=== PATIENT | female | born 1990 | race Caucasian/White ===

== ENCOUNTER 2021-10-06 18:23 | Inpatient (IN) ==
[2021-10-06] MEDS ORDERED: Buffered Lidocaine 1% SYRIN 1 ml INTRADERM ONE (18:59)
[2021-10-06] MEDS ORDERED: Lactated Ringers 1000 ml BAG 1,000 ML IV ONE (18:59)
[2021-10-06] MEDS ORDERED: Lactated Ringers 1000 ml BAG 1,000 ML IV SCH (19:00)
[2021-10-06 19:44] LABS: ABS Basophils 0.1 10^3/ul (0-0.2); ABS Eosinophils 0.1 10^3/ul (0-0.6); ABS Lymphocytes 2.6 10^3/ul (1.0-4.8); ABS Monocytes 0.9 10^3/ul (0-0.8); ABS Neutrophils 11.5 10^3/ul (1.5-7.7); Eosinophil % 0.8 %; Hematocrit 36 % (35-47); Hemoglobin 12.6 g/dL (12.0-16.0); Mean Corpuscular HGB Conc 35 g/dL (31-36); Mean Corpuscular Hemoglobin 33 pg (27-31); Mean Corpuscular Volume 95 fL (80-97); Mean Platelet Volume 12.2 fL (7.4-10.4); Platelet Count 188 10^3/uL (150-450); Red Blood Count 3.82 10^6 /uL (3.70-4.87); Red Cell Distribution Width 14 % (10-15); White Blood Count 15.2 10^3/uL (3.5-10.8)
[2021-10-06] MEDS ORDERED: OBEPIDURAL (200 ML) 0 ML EPIDURAL ONE (19:53)
[2021-10-06] MEDS ORDERED: Lidocaine 1% w EPI 1:200,000 SDV 30 ML VIAL ONE (19:53)
[2021-10-06 19:59] LABS: Urine Benzodiazepine Screen None Detected (None Detect); Urine Cannabinoids Screen Presumptive Positive (None Detect); Urine Opiates Screen None Detected (None Detect)
[2021-10-06] MEDS ORDERED: Glycerin ADULT 2.4 gm SUPP PR PRN (20:22)
[2021-10-06 20:43] LABS: HIV 4th Generation Nonreactive (Nonreactive)
[2021-10-06] MEDS: Witch Hazel PAD JAR TOPICAL PRN (22:15)
[2021-10-06] MEDS: Dibucaine 1% OINT 28.35 GM TUBE PR PRN (22:15)
[2021-10-06] MEDS ORDERED: Oxytocin 10 UNITS/ML 1 ML VIAL IM ONE (23:24)
[2021-10-07 06:24] LABS: ABS Basophils 0.1 10^3/ul (0-0.2); ABS Eosinophils 0.1 10^3/ul (0-0.6); ABS Lymphocytes 2.2 10^3/ul (1.0-4.8); ABS Monocytes 0.7 10^3/ul (0-0.8); ABS Neutrophils 9.2 10^3/ul (1.5-7.7); Eosinophil % 0.7 %; Hematocrit 29 % (35-47); Hemoglobin 9.9 g/dL (12.0-16.0); Lymphocyte % 17.7 %; Mean Corpuscular HGB Conc 35 g/dL (31-36); Mean Corpuscular Hemoglobin 33 pg (27-31); Mean Corpuscular Volume 96 fL (80-97); Mean Platelet Volume 11.8 fL (7.4-10.4); Platelet Count 160 10^3/uL (150-450); Red Blood Count 2.98 10^6 /uL (3.70-4.87); Red Cell Distribution Width 13 % (10-15); White Blood Count 12.2 10^3/uL (3.5-10.8)
[2021-10-08 10:06] VITALS: BP 112/73
[2021-10-08] MEDS: Dibucaine 1% OINT 28.35 GM TUBE PR PRN (11:02)
[2021-10-08] MEDS: Witch Hazel PAD JAR TOPICAL PRN (11:02)
== END 2021-10-08 12:42 | disposition home or self-care (01) | DRG 560 ==
LOC: MCHOBOUT 18:23 → MCHOB 18:56
PROVIDERS: ADMIT Midwife; ATTEND Midwife

== ENCOUNTER 2024-01-14 08:00 | Inpatient (IN) ==
[2024-01-14] MEDS ORDERED: Prochlorperazine 5 mg/ml 2 ml VIAL (10 mg) IV PRN (09:22)
[2024-01-14] MEDS ORDERED: Lidocaine 1% VIAL 10 MG/ML 30 ML VIAL INJ PRN (09:22)
[2024-01-14] MEDS ORDERED: Nalbuphine 10 MG/ML 1 ML VIAL IV PRN (09:22)
[2024-01-14] MEDS: miSOPROStol 100 mcg TAB ONE (09:40)
[2024-01-14 10:21] LABS: Urine Benzodiazepine Screen None Detected (None Detect); Urine Cannabinoids Screen Presumptive Positive (None Detect); Urine Opiates Screen None Detected (None Detect)
[2024-01-14 11:22] LABS: Hematocrit 37.7 % (35-45); Hemoglobin 12.7 g/dL (11.5-14.3); Mean Corpuscular Hemoglobin 31.8 pg (27-33); Mean Corpuscular Hgb Conc 33.7 g/dL (31-36); Mean Corpuscular Volume 94.3 fL (80-97); Mean Platelet Volume 11.1 fL (7.5-11.2); Platelet Count 249 10^3/uL (150-450); Red Cell Distribution Width 13.2 % (12-17); White Blood Count 9.1 10^3/uL (3.8-11.8)
[2024-01-14] MEDS: Buffered Lidocaine 1% SYRIN 1 ml INTRADERM ONE (12:01)
[2024-01-14 12:13] LABS: ABS Basophils 0.1 10^3/uL (0.0-0.1); ABS Eosinophils 0.1 10^3/uL (0.0-0.5); ABS Lymphocytes 1.9 10^3/uL (1.0-4.8); ABS Monocytes 0.4 10^3/uL (0.0-0.9); ABS Neutrophils 6.7 10^3/uL (1.5-7.6); Eosinophil % 0.7 %; Large Platelets Present; Lymphocyte % 20.4 %
[2024-01-14] MEDS: Oxytocin in LR 20,000 MILLI.UNIT/1,000 ML BAG IV SCH (14:57)
[2024-01-14] MEDS: Lactated Ringers 1000 ml BAG 1,000 ML IV SCH (14:57)
[2024-01-14] MEDS: OBEPIDURAL (200 ML) 200 ML EPIDURAL SCH (19:36)
[2024-01-14] MEDS ORDERED: Phenylephrine 40 mcg/mL 10mL (400mcg) SYRINGE IV PUSH PRN ×2 (19:47)
[2024-01-14] MEDS ORDERED: Sodium Citrate/Citric Acid LIQ 15 ML UDC PO PRN (19:47)
[2024-01-14 21:37] LABS: Urine Appearance Clear; Urine Bilirubin Negative (Negative); Urine Blood Negative (Negative); Urine Color Light-Yellow; Urine Glucose Negative (Negative); Urine Ketones Negative (Negative); Urine Nitrite Negative (Negative); Urine Protein Negative (Negative); Urine Specific Gravity 1.019 (1.002-1.030); Urine Urobilinogen Negative (Negative); Urine pH 6.5 (5.0-8.0)
[2024-01-15] MEDS ORDERED: Glycerin ADULT 2.4 gm SUPP PR PRN (03:28)
[2024-01-15] MEDS: Dibucaine 1% OINT 28.35 GM TUBE PR PRN (04:38)
[2024-01-15] MEDS: Witch Hazel PAD JAR TOPICAL PRN (04:38)
[2024-01-15] MEDS: Oxytocin in LR 20,000 MILLI.UNIT/1,000 ML BAG IV SCH (10:06)
[2024-01-15] MEDS: Lactated Ringers 1000 ml BAG 1,000 ML IV SCH (19:40)
[2024-01-15] MEDS: Lactated Ringers 1000 ml BAG 1,000 ML IV ONE ×2 (19:40)
[2024-01-16] MEDS: Polyethylene Glycol 3350 17 GM PACKET PO PRN (08:05)
[2024-01-16 08:14] VITALS: BP 127/59
[2024-01-16 09:16] LABS: ABS Eosinophils 0.1 10^3/uL (0.0-0.5); ABS Lymphocytes 1.9 10^3/uL (1.0-4.8); ABS Monocytes 0.4 10^3/uL (0.0-0.9); ABS Neutrophils 7.7 10^3/uL (1.5-7.6); Eosinophil % 1.2 %; Hemoglobin 11.5 g/dL (11.5-14.3); Mean Corpuscular Hemoglobin 32.1 pg (27-33); Mean Corpuscular Hgb Conc 33.8 g/dL (31-36); Mean Corpuscular Volume 95.1 fL (80-97); Mean Platelet Volume 10.5 fL (7.5-11.2); Platelet Count 282 10^3/uL (150-450); Red Blood Count 3.58 10^6/uL (3.63-4.92); Red Cell Distribution Width 13.2 % (12-17); White Blood Count 10.2 10^3/uL (3.8-11.8)
[2024-01-16] MEDS ORDERED: Influenza Vaccine *TRI* 2024-25* 0.5 ML SYRINGE IM ONE (12:00)
== END 2024-01-16 11:25 | disposition home or self-care (01) | DRG 560 ==
LOC: MCHOBOUT 08:00 → MCHOB 08:51